=== PATIENT | male | born 1960 | race Caucasian/White ===

== ENCOUNTER 2023-03-15 13:53 | Emergency (ER) | payer SELFPAY ==
[2023-03-15 13:56] VITALS: BP 230/133; PULSE 81; RESP 16; TEMP 36.6; O2SAT 99; BMI 30.7
--- NOTE | 2023-03-15 14:15 | XRR_ITS ---
PROCEDURE INFORMATION: Exam: XR Chest Exam date and time: 03/15/2023 2:38 PM Age: 62 years old Clinical indication: Pain; Chest pressure; Additional info: Cp TECHNIQUE: Imaging protocol: Radiologic exam of the chest. Views: 1 view. COMPARISON: CR XR chest 1V [id number] 11/01/2016 2:57 PM FINDINGS: Lungs: Lungs are clear. Pleural spaces: There is no pleural effusion or pneumothorax. Heart/Mediastinum: There is mild enlargement of the cardiac silhouette. Bones/joints: Bones are unremarkable. XR/XR chest 1V portable [id number] IMPRESSION: No acute findings.
--- NOTE | 2023-03-15 14:21 | ECG_ITS ---
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 Measurements Intervals [place] Rate: 77 P: 24 NV: 261 QRS: -40 QRSD: 125 T: 108 QT: 381 QTc: 431 Interpretive Statements SINUS RHYTHM WITH FIRST DEGREE AV BLOCK POSSIBLE LEFT ATRIAL ENLARGEMENT [-0.1mV P-WAVE IN V1/V2] LEFT AXIS DEVIATION [QRS AXIS < -30] LEFT VENTRICULAR HYPERTROPHY AND ST-T CHANGE [VOLTAGE CRITERIA PLUS ST/T ABNORMALITY] Compared to ECG 11/01/2016 14:38:18 Left-axis deviation now present Left ventricular hypertrophy now present ST (T wave) deviation now present Intraventricular conduction delay no longer present T-wave abnormality no longer present Electronically Signed On 03-15-2023 19:45:29 PRODUCTION ASSEMBLY OPERATOR by Levon Garcia M.D. [id number]
--- NOTE | 2023-03-15 14:24 | CTR_ITS ---
PROCEDURE INFORMATION: Exam: CT Head Without Contrast Exam date and time: 03/15/2023 2:41 PM Age: 62 years old Clinical indication: Numbness / parasthesia; Left TECHNIQUE: Imaging protocol: Computed tomography of the head without contrast. Radiation optimization: All CT scans at this facility use at least one of these dose optimization techniques: automated exposure control; mA and/or kV adjustment per patient size (includes targeted exams where dose is matched to clinical indication); or iterative reconstruction. REPORTING DATA: Count of CT and Cardiac NM exams in prior 12 months: This patient has received 0 known CTs and 0 known cardiac nuclear medicine studies in the 12 months prior to the current study. COMPARISON: No relevant prior studies available. RADIATION DOSE METRICS: Total DLP (mGy-cm): 1143.08 FINDINGS: Brain: There is minimal hypoattenuation in the periventricular white matter suggesting chronic microvascular disease. There is a 9 mm fluid density focus in right frontal periventricular white matter consistent with a chronic lacunar infarct. There is no significant mass effect or midline shift. There is no acute intracranial hemorrhage. Cerebral ventricles: There is no significant ventricular dilation. The basal cisterns are unremarkable. Paranasal sinuses: The paranasal sinuses are clear. Mastoid air cells: The mastoid air cells are clear. Bones/joints: The calvarium is intact. Soft tissues: The visible extracranial soft tissues are unremarkable. CT/CT head wo con* [id number] IMPRESSION: 1. No acute intracranial abnormality. 2. Incidental findings above.
[2023-03-15] MEDS: labetalol 5 mg/mL SDV 20mL 10 MG IVP (14:30)
--- NOTE | 2023-03-15 14:33 | W.ED.GENADLT ---
HPI - General Adult General: Chief complaint: General Medical Stated complaint: left side numb Time Seen by Provider: 03/15/23 14:15 Source: patient Mode of arrival: ambulatory Limitations: no limitations History of Present Illness: 62-year-old male states that he has had hypertension for quite some time he states he finally went and got his blood pressure evaluated on Thursday and was started on losartan along with clonidine he states that his blood pressure since then has been going up and down he states this morning he had some numbness on his left side that is since resolved his blood pressure is over 200 denies any pains or headaches no difficulty walking or slurred speech Associated symptoms: Deny chest pain, dyspnea, headache(s), nausea, rash or vomiting Review of Systems Const: Denies: fever(s), chills, body aches or change in appetite Eyes: Denies: blurry vision or eye discomfort ENMT: Denies: throat pain or dental pain Card: Denies: chest pain Resp: Denies: dyspnea GI: Denies: abdominal pain, nausea, vomiting or diarrhea Musc: Denies: neck pain or back pain Skin/Breast: Denies: rash Neuro: Reports: numbness in extremities; Denies: headache(s) Physical Exam Const: COMMON NORMALS: no acute distress, patient oriented x3 and healthy appearing HENMT: COMMON NORMALS: normocephalic and atraumatic HEAD & SCALP: normocephalic and atraumatic Neck/C-Spine: COMMON NORMALS: full ROM and supple Chest: COMMONS NORMALS: normal inspection of the chest and normal palpation of entire chest wall Resp: COMMON NORMALS: normal respiratory effort, No retractions, No use of accessory muscles and clear to auscultation bilaterally AUSCULTATION: clear to auscultation bilaterally Cardio: COMMON NORMALS: regular rate, regular rhythm and No murmurs present (Cardio) RATE: regular rate RHYTHM: regular rhythm GI: COMMON NORMALS: Normal to inspection, nondistended, normoactive bowel sounds present, Soft to palpation, non-tender and no masses PALPATION: Yes Soft to palpation Extremity: COMMON NORMALS: normal to inspection and full ROM Neuro: COMMON NORMALS: patient oriented x3, moves all extremities and no focal motor deficits CRANIAL NERVES: Yes CN normal except as noted SPEECH: speech normal MOTOR EXAM: 5/5 motor strength present throughout Psych: COMMON NORMALS: mental status grossly normal, Normal thought process present and cooperative THOUGHT PROCESS: Normal thought process present Skin: COMMON NORMALS: no rashes or lesions noted and no wounds GENERAL SKIN EXAM: no rashes or lesions noted Course Vital Signs: Vital signs: Vital Signs Temperature 97.8 F 03/15/23 13:56 Pulse Rate 72 03/15/23 16:30 Respiratory Rate 19 H 03/15/23 15:36 Blood Pressure 191/104 03/15/23 16:30 Pulse Oximetry 99 03/15/23 16:30 Oxygen Delivery Me thod Room Air 03/15/23 15:36 MDM - General Adult Medical Decision Making Patient presents here with high blood pressure his blood pressure is much improved here he had some paresthesias that since resolved he is no signs of a stroke troponins here are normal I did start him on clonidine which I will DC due to the complication of rebound hypertension we will start him on metoprolol to take with his valsartan. Is to follow-up with PCP and return if worsening. Medical Records I reviewed the patient's medical records. Lab Data I reviewed the patient's lab results. 03/15/23 14:27 03/15/23 14:27 Radiology Impressions Chest X-Ray 03/15/23 14:15 IMPRESSION: No acute findings. Head CT 03/15/23 14:24 IMPRESSION: 1. No acute intracranial abnormality. 2. Incidental findings above. Laboratory Results WBC 5.77 10^3/uL (3.29-11.43) 03/15/23 14:27 RBC 5.29 10^6/uL (3.85-5.65) 03/15/23 14:27 Hgb 16.80 g/dL (11.27-16.99) 03/15/23 14:27 Hct 49.4 % (37-53) 03/15/23 14:27 MCV 93.4 fl (82-101) 03/15/23 14:27 MCH 31.8 pg (27-33) 03/15/23 14:27 MCHC 34.0 g/dL (30-55) 03/15/23 14:27 RDW 12.5 % (12.1-15.1) 03/15/23 14:27 Plt Count 264 10^3/cmm (157-399) 03/15/23 14:27 MPV 9.3 fL (7.4-10.4) 03/15/23 14:27 Neut % (Auto) 64.4 % 03/15/23 14:27 Lymph % (Auto) 21.3 % 03/15/23 14:27 Thomas % (Auto) 11.4 % 03/15/23 14:27 Eos % (Auto) 1.6 % 03/15/23 14:27 Baso % (Auto) 1.0 % 03/15/23 14:27 Neut # (Auto) 3.71 10^3/uL (1.8-7.7) 03/15/23 14:27 Lymph # (Auto) 1.2 10^3/uL (0.8-4.8) 03/15/23 14:27 Thomas # (Auto) 0.7 10^3/uL (0.2-0.9) 03/15/23 14:27 Eos # (Auto) 0.1 10^3/uL (0.0-0.8) 03/15/23 14:27 Baso # (Auto) 0.1 10^3/uL (0.0-0.1) 03/15/23 14:27 Nucleated RBC % (auto) 0 % 03/15/23 14: Nucleated RBCs # 0.0 /100WBC 03/15/23 14:27 Sodium 139 mmol/L (136-145) 03/15/23 14:27 Potassium 4.4 mmol/L (3.5-5.1) 03/15/23 14:27 Chloride 104 mmol/L (98-107) 03/15/23 14:27 Carbon Dioxide 24 mmol/L (22-29) 03/15/23 14:27 Anion Gap 15.4 (5-19) 03/15/23 14:27 BUN 16 mg/dL (8-23) 03/15/23 14:27 Creatinine 1.3 mg/dL (0.7-1.2) H 03/15/23 14:27 GFR Calculation 56.1 mL/min (90-130) L 03/15/23 14:27 Glucose 97 mg/dL (65-115) 03/15/23 14:27 Calculated Osmolality 289 mOsm/kg (285-295) 03/15/23 14:27 Calcium 9.3 mg/dL (8.5-10.5) 03/15/23 14:27 Total Bilirubin 0.4 mg/dL (0.15-1.2) 03/15/23 14:27 AST 19 U/L (0-40) 03/15/23 14:27 ALT 16 U/L (0-41) 03/15/23 14:27 Alkaline Phosphatase 79 U/L (40-130) 03/15/23 14:27 Troponin T Baseline 20 ng/L (0-15) H 03/15/23 14:27 Troponin T 120 Minute 19.13 ng/L (0-15) H 03/15/23 16:10 Delta Troponin T -0.87 ABS# (0-10) L 03/15/23 16:10 Total Protein 7.7 g/dL (6.6-8.7) 03/15/23 14:27 Albumin 4.5 g/dL (3.5-5.2) 03/15/23 14:27 Globulin 3.2 g/dL (1.3-4.6) 03/15/23 14:27 All radiology interpretation(s) finalized by discharge EKG Data EKG 1: I personally reviewed and interpreted this EKG as follows: EKG interpretation date: 03/15/23 EKG interpretation time: 14:21 Interpretation: nsr hr [address] or t wave abnormalities qrs 125 qtc 412 Computer generated interpretation: Chest X-Ray 03/15/23 14:15 IMPRESSION: No acute findings. Head CT 03/15/23 14:24 IMPRESSION: 1. No acute intracranial abnormality. 2. Incidental findings above. Discharge Plan Discharge Patient Disposition: Home Clinical Impression: Hypertension Qualifiers: Hypertension type: unspecified Qualified Code(s): I10 - Essential (primary) hypertension Condition: Stable Prescriptions: New metoprolol succinate 50 mg tablet extended release 24 hr 50 mg PO DAILY Qty: 30 0RF Discontinued clonidine HCl 0.1 mg Tablet 0.1 mg PO DAILY MDD 2 TABS PRN (Reason: SBP >160-MAY REPEAT IN 2 HOURS) No Action Tension Headache 500-65 mg Tablet 1 - 2 tab PO Q6H PRN (Reason: Pain) valsartan 80 mg Tablet 80 mg PO QAM Discharge Orders: Discharge ED (Routine); Ordered 03/15/23 Ordered By: Lizzy Morales Discharge Diet: Advance as tolerated Discharge Activity: Resume usual activity Patient Instructions: Hypertension (ED) Coding Level of Care Code ED Collar Closer Lockstitch for Tova Currie NIH stroke score NIHSS Level Of Consciousness - 1a: 0 Level Of Consciousness Questions - 1b: Both Correct Level Of Consciousness Commands - 1c: Both Correct Best Gaze - 2: Normal Visual Diaz - 3: No Visual Loss Facial Palsy - 4: Normal Motor Arm Right - 5: No Drift Motor Arm Left - 5: No Drift Motor Leg Right - 6: No Drift Motor Leg Left - 6: No Drift Limb Ataxia - 7: Absent Sensory - 8: Normal Best Language - 9: No Aphasia Dysarthia - 10: Normal Extinction And Inattention - 11: 0 Score Total Score: 0
[2023-03-15 14:52] LABS: Troponin(5th) Baseline 20 ng/L (0-15)
[2023-03-15 14:53] LABS: Basophils # 0.1 10^3/uL (0.0-0.1); Eosinophils # 0.1 10^3/uL (0.0-0.8); Eosinophils % 1.6 %; Hematocrit 49.4 % (37-53); Lymphocytes # 1.2 10^3/uL (0.8-4.8); Lymphocytes % 21.3 %; Mean Corpuscular Hemoglobin 31.8 pg (27-33); Mean Corpuscular Volume 93.4 fl (82-101); Mean Platelet Volume 9.3 fL (7.4-10.4); Monocytes # 0.7 10^3/uL (0.2-0.9); Monocytes % 11.4 %; Neutrophils # 3.71 10^3/uL (1.8-7.7); Neutrophils % 64.4 %; Nucleated Red Blood Cells % 0 %; Platelet Count 264 10^3/cmm (157-399); Red Blood Count 5.29 10^6/uL (3.85-5.65); Red Cell Distribution Width 12.5 % (12.1-15.1); White Blood Count 5.77 10^3/uL (3.29-11.43)
[2023-03-15 14:55] LABS: Albumin Level 4.5 g/dL (3.5-5.2); Alkaline Phosphatase 79 U/L (40-130); Chloride 104 mmol/L (98-107); Potassium 4.4 mmol/L (3.5-5.1); Sodium 139 mmol/L (136-145)
[2023-03-15] MEDS: labetalol 5 mg/mL SDV 20mL 20 MG IVP (15:08)
[2023-03-15 15:36] VITALS: BP 179/102; PULSE 72; RESP 19; O2SAT 98
[2023-03-15] MEDS: hyDRALAzine 20 mg/mL INJ 1 mL 10 MG IVP ×2 (15:45→16:42)
[2023-03-15 16:13] LABS: Alanine Aminotransferase 16 U/L (0-41); Anion Gap 15.4 (5-19); Blood Urea Nitrogen 16 mg/dL (8-23); Calcium 9.3 mg/dL (8.5-10.5); Carbon Dioxide 24 mmol/L (22-29); Globulin 3.2 g/dL (1.3-4.6); Glomerular Filtration Rate 56.1 mL/min (90-130); Glucose 97 mg/dL (65-115); Osmolality Calculated 289 mOsm/kg (285-295); Total Bilirubin 0.4 mg/dL (0.15-1.2); Total Protein 7.7 g/dL (6.6-8.7)
[2023-03-15 16:14] LABS: Aspartate Amino Transferase 19 U/L (0-40)
--- NOTE | 2023-03-15 16:15 | ECG_ITS ---
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 Measurements Intervals [place] Rate: 72 P: 29 [place]: 249 QRS: -33 QRSD: 127 T: 125 QT: 400 QTc: 440 Interpretive Statements SINUS RHYTHM WITH FIRST DEGREE AV BLOCK POSSIBLE LEFT ATRIAL ENLARGEMENT [-0.1mV P-WAVE IN V1/V2] LEFT AXIS DEVIATION [QRS AXIS < -30] LEFT VENTRICULAR HYPERTROPHY AND ST-T CHANGE [VOLTAGE CRITERIA PLUS ST/T ABNORMALITY] Compared to ECG 03/15/2023 14:21:38 No significant changes Electronically Signed On 03-15-2023 19:54:16 CHUTE GREASER by Levon Garcia M.D. [id number]
[2023-03-15 16:30] VITALS: BP 191/104; PULSE 72; O2SAT 99
[2023-03-15 16:32] LABS: Troponin 5 2HR 19.13 ng/L (0-15)
[2023-03-15 16:33] LABS: Troponin 5 2HR Delta -0.87 ABS# (0-10)
[2023-03-15 17:08] VITALS: BP 148/89; PULSE 76; RESP 17; O2SAT 96
--- NOTE | 2023-03-16 10:49 | DCPLANNER ---
Message was sent to [facility] on 03/16/23 at 2580. [facility] to contact patient
== END 2023-03-15 17:10 | disposition home or self-care (01) ==
PROVIDERS: Emergency Provider Emergency Medicine
DX: I10 Essential (primary) hypertension (principal)
CPT/HCPCS: 70450; 71045; 80053; 84484; 85025; 93005; 96374; 96375; 96376; 99285; J0360; J3490

== ENCOUNTER 2023-03-17 22:19 | Emergency (ER) | payer SELFPAY ==
[2023-03-17 22:21] VITALS: BP 244/131; PULSE 79; RESP 18; TEMP 36.8; O2SAT 96; BMI 30.7
[2023-03-17 22:42] VITALS: BP 258/133; PULSE 82; RESP 18; O2SAT 95
[2023-03-17 22:46] VITALS: BP 210/136
[2023-03-17] MEDS: cloNIDine 0.1 mg Tablet 0.2 MG PO (22:46)
--- NOTE | 2023-03-17 22:47 | ED_ITS ---
HPI - Recheck/Abnormal Lab/Rx General: Chief Complaint: Recheck/Abnormal Lab/Rx Stated Complaint: high bp Time Seen by Provider: 03/17/23 22:30 History of Present Illness: Patient presents to the ER for high blood pressure. Patient is just recently started on metoprolol 50 mg once daily proximally 3 days ago and valsartan 80 mg daily approximately 5 days ago. Patient's blood pressure upon arrival was 244/131. Patient has no other complaints at this time and is feeling good. Jeanne shaver's made him come in due to his high blood pressure. Review of Systems General: Reports: 10 or more systems reviewed and unremarkable except in HPI and below Physical Exam Const: COMMON NORMALS: no acute distress, average body habitus, patient oriented x3, no limitations, healthy appearing, alert and well nourished HENMT: COMMON NORMALS: normocephalic, atraumatic, hearing grossly normal bilaterally, external ears normal, Normal external nose present, moist oral mucous membranes and oropharynx normal HEAD & SCALP: normocephalic and atraumatic NOSE: Normal external nose present EXTERNAL EAR: Yes external ears normal Neck/C-Spine: COMMON NORMALS: full ROM, no lymphadenopathy, supple, no meningeal signs, no JVD and Thyroid normal THYROID: Thyroid normal Chest: COMMONS NORMALS: normal inspection of the chest and normal palpation of entire chest wall Resp: COMMON NORMALS: normal respiratory effort, No retractions, No use of accessory muscles and clear to auscultation bilaterally AUSCULTATION: clear to auscultation bilaterally Cardio: COMMON NORMALS: no JVD, regular rate, regular rhythm, S1 normal heart sound present, S2 normal heart sound present, No gallops present (Cardio), No clicks present (Cardio), No murmurs present (Cardio) and No rub (Cardio) RATE: regular rate RHYTHM: regular rhythm HEART SOUNDS: S1 normal heart sound present and S2 normal heart sound present GI: COMMON NORMALS: Normal to inspection, nondistended, normoactive bowel sounds present, Soft to palpation, non-tender, No hepatosplenomegaly present and no masses PALPATION: Yes Soft to palpation and Yes No hepatosplenomegaly present Neuro: COMMON NORMALS: patient oriented x3 SENSORIUM/ORIENTATION: Yes alert MENINGEAL SIGNS: Yes no meningeal signs Course Vital Signs: Vital signs: Vital Signs Temperature 98.3 F 12/19/23 22:21 Pulse Rate 74 03/17/23 23:36 Respiratory Rate 15 03/17/23 23:36 Blood Pressure 184/103 03/17/23 23:36 Pulse Oximetry 95 03/17/23 23:36 Oxygen Delivery Me thod Room Air 03/17/23 23:36 MDM - Recheck/Abnormal Lab/Rx Medical Decision Making Patient presents to the ER with blood pressure high 244/131. Patient was given 0.2 mg of clonidine followed by 25 hydralazine. Upon recheck patient's blood pressure is 151/93. Patient be discharged home with a prescription for HCTZ 25 mg to take in addition to his metoprolol and valsartan and he can take his clonidine and he has at home as directed. Patient to keep a blood pressure log and follow-up with his family physician within the next 7 to 10 days for further evaluation and treatment as needed. Differential Diagnosis Unlikely encounter for medication refill, encounter for wound recheck, encounter for recheck of burn, encounter for removal of sutures or warfarin-induced coagulopathy Medical Records I reviewed the patient's medical records. Lab Data I reviewed the patient's lab results. No radiology studies performed this visit Discharge Plan Discharge Patient Disposition: Home Clinical Impression: Hypertension Condition: Stable Prescriptions: No Action Tension Headache 500-65 mg Tablet 1 - 2 tab PO Q6H PRN (Reason: Pain) valsartan 80 mg Tablet 80 mg PO QAM metoprolol succinate 50 mg tablet extended release 24 hr 50 mg PO DAILY Qty: 30 0RF Discharge Orders: Discharge ED (Routine); Ordered 03/17/23 Ordered By: Tyron Ortiz Patient Instructions: Hypertension Activity Restrictions/Additional Instructions: Please take all your medicine as prescribed this includes a new medicine HCTZ 25 mg 1 pill daily. You may take your clonidine 0.1 mg up to every 6 hours as needed for blood pressure greater than 150/100. Please keep a blood pressure log and take it with you to your next family practice appointment. Coding Level of Care Code ED Carpet Journeyman for Tova Currie
[2023-03-17 23:27] VITALS: BP 188/107; PULSE 75; RESP 20; O2SAT 94
[2023-03-17] MEDS: hyDRALAzine 25 mg Tablet PO (23:35)
[2023-03-17 23:36] VITALS: BP 184/103; PULSE 74; RESP 15; O2SAT 95
[2023-03-17 23:54] VITALS: BP 138/88; PULSE 71; RESP 14; O2SAT 100
[2023-03-18 00:04] VITALS: BP 145/83; PULSE 74; RESP 22; O2SAT 92
== END 2023-03-18 00:05 | disposition home or self-care (01) ==
PROVIDERS: Emergency Provider Emergency Medicine
DX: I10 Essential (primary) hypertension (principal)
CPT/HCPCS: 99283